=== PATIENT | female | born 1960 | race Caucasian/White ===

== ENCOUNTER → 2018-02-02 | Outpatient (CLI) | payer OTHER ==
[~2018-02-02] MED LIST: CONEST.625; Flovent Diskus50 MCG; Melatonin5 M1
== END | disposition home or self-care (01) ==
LOC: LAB SHORT 13:39 → LAB 13:39
PROVIDERS: Registered Nurse
DX: Z12.4 Encounter for screening for malignant neoplasm of cervix (principal)
CPT/HCPCS: 87624; 88142

== ENCOUNTER 2022-06-24 08:39 | Day surgery (SDC) | payer OTHER ==
[~2022-06-24] VITALS: Ht 160 cm; Wt 56.4 kg
[2022-06-24] MEDS ORDERED: CLIMARA1 EACH (09:05)
[2022-06-24] MEDS ORDERED: ZOLP10 (09:05)
--- NOTE | 2022-06-24 12:17 | NUR ---
06/24/22 1217 John Griffin SECOND BAG OF LR STRARTED AT 1108 WITH 900 LTC AT PROCEDURE END.
== END 2022-06-24 11:52 | disposition home or self-care (01) ==
LOC: ORSCSDS 08:39
PROVIDERS: Student in an Organized Health Care Education/Training Program
PROC: 0DBN8ZX Excision of Sigmoid Colon, Via Natural or Artificial Opening Endoscopic, Diagnostic (ICD-10-PCS; principal; 2022-06-24 10:15)
PROC: 0DB48ZX Excision of Esophagogastric Junction, Via Natural or Artificial Opening Endoscopic, Diagnostic (ICD-10-PCS; principal; 2022-06-24 10:15)
PROC: 0DBL8ZX Excision of Transverse Colon, Via Natural or Artificial Opening Endoscopic, Diagnostic (ICD-10-PCS; principal; 2022-06-24 10:15)
PROC: 0W3P8ZZ Control Bleeding in Gastrointestinal Tract, Via Natural or Artificial Opening Endoscopic (ICD-10-PCS; principal; 2022-06-24 10:15)
PROC: 0DB58ZX Excision of Esophagus, Via Natural or Artificial Opening Endoscopic, Diagnostic (ICD-10-PCS; principal; 2022-06-24 10:15)
PROC: 0DBK8ZX Excision of Ascending Colon, Via Natural or Artificial Opening Endoscopic, Diagnostic (ICD-10-PCS; principal; 2022-06-24 10:15)
PROC: 0DB68ZX Excision of Stomach, Via Natural or Artificial Opening Endoscopic, Diagnostic (ICD-10-PCS; principal; 2022-06-24 10:15)
DX: R13.10 Dysphagia, unspecified (principal); K22.11 Ulcer of esophagus with bleeding; K31.7 Polyp of stomach and duodenum; K21.00 Gastro-esophageal reflux disease with esophagitis, without bleeding; D12.2 Benign neoplasm of ascending colon; D12.3 Benign neoplasm of transverse colon; Z12.11 Encounter for screening for malignant neoplasm of colon; Z86.010 Personal history of colon polyps
CPT/HCPCS: 88305; 88312; J2704; J7120

== ENCOUNTER 2024-05-01 08:08 | Day surgery (SDC) | payer OTHER ==
[2024-05-01] VITALS (7 sets, daily range): BP systolic 118–135; BP diastolic 71–84
[~2024-05-01] VITALS: Ht 160 cm; Wt 57.8 kg
[~2024-05-01 08:08] MED LIST changes: +CLIMARA1 EACH; +CeFAZolin Sodium 2,000 MG in NS 100 ML IV SCH; +Lactated Ringer's 1,000 ML IV SCH; +ZOLP10
[2024-05-01] MEDS ORDERED: OMEP20ER PO (08:44)
[2024-05-01] MEDS ORDERED: Bupivacaine 0.5% HCl 5 MG/ML 30MLVIAL ONE (12:09)
[2024-05-01] MEDS ORDERED: FentaNYL Citrate 50 MCG/ML 2 ML Injection ONE (12:14)
[2024-05-01] MEDS ORDERED: propofoL 20 ML IV ONE (12:14)
[2024-05-01] MEDS ORDERED: Dexamethasone Sod Phos 10 MG/ML 1ML VIAL ONE (12:32)
[2024-05-01] MEDS ORDERED: Ondansetron HCl 2 MG / ML 2ML Vial ONE (13:26)
[2024-05-01] MEDS ORDERED: HYDROcodone 5-APAP 325 TAB PO PRN (14:05)
[2024-05-01] MEDS ORDERED: Ketorolac Tromethamine 30mg Vial ONE (14:15)
--- NOTE | 2024-05-01 15:10 | NUR ---
Discharge instructions reviewed with patient. Patient verbalizes understanding. Copy given to patient to take home. DRG TO RIGHT BREAST (NEAR UNDERARM AREA) C/D/I WITH SURGICAL GLUE INTACT.
--- NOTE | 2024-05-01 15:18 | NUR ---
PT TO [facility] FOR [facility], Discharged via wheelchair to private car for ride home.
== END 2024-05-01 15:25 | disposition home or self-care (01) ==
LOC: NM 08:08 → ORSCMMR 08:08 → NM 09:00
PROVIDERS: Surgery
PROC: 07B50ZX Excision of Right Axillary Lymphatic, Open Approach, Diagnostic (ICD-10-PCS; principal; 2024-05-01 10:00)
PROC: 0HBT0ZZ Excision of Right Breast, Open Approach (ICD-10-PCS; principal; 2024-05-01 10:00)
DX: C50.611 Malignant neoplasm of axillary tail of right female breast (principal)
CPT/HCPCS: 38792; 76098; 88307; 88342; A9270; A9520; J0690; J1100; J1885; J2405; J2704; J3010; J7120

== ENCOUNTER 2024-11-01 12:41 | Day surgery (SDC) | payer OTHER ==
[~2024-11-01] VITALS: Ht 160 cm; Wt 59.4 kg
[~2024-11-01 12:41] MED LIST changes: -CeFAZolin Sodium 2,000 MG in NS 100 ML IV SCH; +FOSAMAX70 MG PO; +HYDROCODONE-AC1 EA19; +Lactated Ringer's 1,000 ML IV ONE; -Lactated Ringer's 1,000 ML IV SCH; +OMEP20ER PO; +propofoL 50 ML IV ONE
[2024-11-01] MEDS ORDERED: GABA300 (13:06)
[2024-11-01] MEDS ORDERED: CELEBREX200 MG (13:06)
[2024-11-01] MEDS ORDERED: Lactated Ringer's 1,000 ML IV ONE (13:38)
[2024-11-01 15:41] VITALS: BP 106/69
== END 2024-11-01 15:31 | disposition home or self-care (01) ==
LOC: ORSCSDS 12:41
PROVIDERS: Internal Medicine Gastroenterology
PROC: 0DBL8ZX Excision of Transverse Colon, Via Natural or Artificial Opening Endoscopic, Diagnostic (ICD-10-PCS; principal; 2024-11-01 14:00)
PROC: 0DB78ZX Excision of Stomach, Pylorus, Via Natural or Artificial Opening Endoscopic, Diagnostic (ICD-10-PCS; principal; 2024-11-01 14:00)
DX: K21.9 Gastro-esophageal reflux disease without esophagitis (principal); Z12.11 Encounter for screening for malignant neoplasm of colon; Z86.0101 Personal history of adenomatous and serrated colon polyps; K31.7 Polyp of stomach and duodenum; D12.3 Benign neoplasm of transverse colon; Z79.899 Other long term (current) drug therapy
CPT/HCPCS: 88305; J2704; J7120

== ENCOUNTER → 2025-02-01 | Outpatient (CLI) | payer OTHER ==
[~2025-02-01] MED LIST changes: +CELEBREX200 MG; +GABA300; -Lactated Ringer's 1,000 ML IV ONE; -propofoL 50 ML IV ONE
[2025-02-08 09:44] LABS: HPV HIGH RISK BY TMA Not Detected; HPV SOURCE Cervical
== END ==
LOC: LAB SHORT 10:37 → LAB 10:37
PROVIDERS: Family Medicine
DX: Z12.4 Encounter for screening for malignant neoplasm of cervix (principal); N88.8 Other specified noninflammatory disorders of cervix uteri
CPT/HCPCS: 87624; G0123